=== PATIENT | male | born 1975 | race Caucasian/White ===

== ENCOUNTER 2019-05-22 19:45 | Emergency (ER) | payer OTHER ==
[~2019-05-22] VITALS: Ht 185.4 cm; Wt 145.1 kg
[2019-05-22] MEDS ORDERED: CYCLOBENZAPRINE10 MG PO (21:16)
== END 2019-05-22 21:25 | disposition home or self-care (01) ==
LOC: ED 19:45
DX: M54.9 Dorsalgia, unspecified (principal); Z88.6 Allergy status to analgesic agent; Z88.8 Allergy status to other drugs, medicaments and biological substances